=== PATIENT | female | born 1975 | race Caucasian/White ===

== ENCOUNTER 2018-07-13 08:33 | Day surgery (SDC) | payer BC, OTHER | END 2018-07-13 22:51 | disposition home or self-care (01) | LOC: MOI US 08:33 → MOI MAM 08:45 → MOI US 22:51 | PROC: 0HBU3ZX Excision of Left Breast, Percutaneous Approach, Diagnostic (ICD-10-PCS; principal; 2018-07-13) | DX: N62 Hypertrophy of breast (principal) | CPT/HCPCS: 19083; 77065; 88305; A4648; G0279 ==